=== PATIENT | female | born 1980 | race Caucasian/White ===

== ENCOUNTER 2018-05-02 14:06 | Emergency (ER) | payer BC ==
[~2018-05-02] VITALS: Ht 170.2 cm; Wt 152.0 kg
[~2018-05-02 14:06] MED LIST: CITA40TA22 PO
[2018-05-02] MEDS ORDERED: normal saline 1000ML IV soln IVB ONE (15:05)
[2018-05-02 15:42] LABS: BASOPHILS % (AUTO) 0.6 % (0-1); EOSINOPHILS # (AUTO) 0.1 X10'3 (0-0.9); HEMATOCRIT 42.8 % (35.0-45.0); HEMOGLOBIN 14.4 g/dl (12.0-16.0); LYMPHOCYTES # (AUTO) 1.4 X10'3 (1.1-4.8); LYMPHOCYTES % (AUTO) 15.8 % (21-51); MEAN CORPUSCULAR HEMOGLOBIN 29.6 PG (27.0-31.0); MEAN CORPUSCULAR HGB CONC 33.6 % (33.0-36.5); MEAN CORPUSCULAR VOLUME 88.1 FL (78-98); MEAN PLATELET VOLUME 7.7 FL (7.4-10.4); MONOCYTES % (AUTO) 11.2 % (2-12); NEUTROPHILS # (AUTO) 6.4 X10'3 (1.8-7.7); NEUTROPHILS % (AUTO) 71.4 % (42-75); PLATELET COUNT 364 X10'3 (140-440); RED BLOOD COUNT 4.85 X10'6 (4.20-5.60); RED CELL DISTRIBUTION WIDTH 12.9 % (11.5-14.5); WHITE BLOOD COUNT 8.9 X10'3 (4.5-11.0)
[2018-05-02 17:58] VITALS: BP 156/92
[2018-05-02 17:58] LABS: ALANINE AMINOTRANSFERASE 32 U/L (12-78); ALBUMIN 3.3 G/DL (3.4-5.0); ALKALINE PHOSPHATASE 67 IU/L (46-116); ANION GAP 9 (8-16); ASPARTATE AMINO TRANSFERASE 18 U/L (10-37); BILIRUBIN,TOTAL 0.2 MG/DL (0.1-1.0); BLOOD UREA NITROGEN 9 MG/DL (7-18); BUN/CREATININE RATIO 11.3 (6.6-38.0); CALCIUM 8.7 MG/DL (8.5-10.1); CHLORIDE 105 MMOL/L (99-107); GLUCOSE 121 MG/DL (70-104); POTASSIUM 3.9 MMOL/L (3.5-5.1); SODIUM 141 MMOL/L (135-145); TOTAL CARBON DIOXIDE 26.6 MMOL/L (24-32); TOTAL PROTEIN 6.7 G/DL (6.4-8.2); eGFR 81 ML/MIN
== END 2018-05-02 18:00 | disposition home or self-care (01) ==
LOC: ER 14:07
DX: R55 Syncope and collapse (principal); F41.9 Anxiety disorder, unspecified; F32.9 Major depressive disorder, single episode, unspecified; F12.90 Cannabis use, unspecified, uncomplicated; Z79.899 Other long term (current) drug therapy
CPT/HCPCS: 36415; 80053; 82553; 85025; 93005; 96360; 99284; J7030

== ENCOUNTER 2019-12-29 13:33 | Emergency (ER) | payer BC ==
[~2019-12-29] VITALS: Ht 170.2 cm; Wt 159.1 kg
[2019-12-29 13:41] VITALS: BP 168/50
[2019-12-29 14:30] LABS: BASOPHILS # (AUTO) 0.1 X10'3 (0-0.2); BASOPHILS % (AUTO) 0.8 % (0-1); EOSINOPHILS # (AUTO) 0.2 X10'3 (0-0.9); EOSINOPHILS % (AUTO) 1.7 % (0-6); HEMATOCRIT 43.4 % (35.0-45.0); HEMOGLOBIN 14.8 g/dl (12.0-16.0); LYMPHOCYTES # (AUTO) 2.3 X10'3 (1.1-4.8); LYMPHOCYTES % (AUTO) 22.9 % (21-51); MEAN CORPUSCULAR HEMOGLOBIN 30.3 PG (27.0-31.0); MEAN CORPUSCULAR HGB CONC 34.2 g/dL (33.0-36.5); MEAN CORPUSCULAR VOLUME 88.7 FL (78-98); MEAN PLATELET VOLUME 7.5 FL (7.4-10.4); NEUTROPHILS # (AUTO) 6.4 X10'3 (1.8-7.7); NEUTROPHILS % (AUTO) 64.6 % (42-75); PLATELET COUNT 360 X10'3 (140-440); RED BLOOD COUNT 4.89 X10'6 (4.20-5.60); RED CELL DISTRIBUTION WIDTH 13.1 % (11.5-14.5); WHITE BLOOD COUNT 9.9 X10'3 (4.5-11.0)
[2019-12-29 14:42] LABS: ALANINE AMINOTRANSFERASE 45 U/L (12-78); ALBUMIN 3.8 G/DL (3.4-5.0); ALKALINE PHOSPHATASE 69 IU/L (46-116); ANION GAP 8 (8-16); ASPARTATE AMINO TRANSFERASE 32 U/L (10-37); BILIRUBIN,TOTAL 0.3 MG/DL (0.1-1.0); BLOOD UREA NITROGEN 7 MG/DL (7-18); BUN/CREATININE RATIO 8.9 (6.6-38.0); CALCIUM 9.3 MG/DL (8.5-10.1); CHLORIDE 104 MMOL/L (99-107); CREATININE 0.79 MG/DL (0.40-0.90); GLUCOSE 92 MG/DL (70-104); POTASSIUM 3.9 MMOL/L (3.5-5.1); SODIUM 138 MMOL/L (135-145); TOTAL CARBON DIOXIDE 25.6 MMOL/L (24-32); TOTAL PROTEIN 7.7 G/DL (6.4-8.2); eGFR 81 ML/MIN
[2019-12-29] MEDS ORDERED: PROCHC RC (15:23)
--- NOTE | 2019-12-29 15:39 | NUR ---
ASSISSTED PROVIDER WITH RECTAL EXAM
--- NOTE | 2019-12-29 15:40 | NUR ---
Spoke with provider CRISS Palma and UA not needed.
== END 2019-12-29 15:39 | disposition home or self-care (01) ==
LOC: ER 13:33
DX: K64.9 Unspecified hemorrhoids (principal); R19.7 Diarrhea, unspecified; F41.9 Anxiety disorder, unspecified; F32.9 Major depressive disorder, single episode, unspecified; E66.01 Morbid (severe) obesity due to excess calories; F12.90 Cannabis use, unspecified, uncomplicated; Z79.899 Other long term (current) drug therapy; Z68.43 Body mass index [BMI] 50.0-59.9, adult
CPT/HCPCS: 36415; 80053; 85025; 99283

== ENCOUNTER 2022-11-23 21:10 | Emergency (ER) | payer BC ==
[~2022-11-23] VITALS: Ht 170.2 cm; Wt 150.0 kg
[~2022-11-23 21:10] MED LIST changes: +PROCHC RC
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
[2022-11-23] MEDS ORDERED: iohexol 300mg/ml 100ml inj. ONE (23:24)
--- NOTE | 2022-11-24 01:43 | NUR ---
Spoke to Dr Campo and report of CT read to him. Tenisha dc the patient, giving her a copy of the report, and for her to f/u with her MD.
[2022-11-24 01:49] VITALS: BP 135/89
--- NOTE | 2022-11-24 01:49 | NUR ---
per dr moffett, ok to d/c pt after recieving ct results. results read to dr moffett.
== END 2022-11-24 01:50 | disposition home or self-care (01) ==
LOC: ER 21:11
DX: S16.1XXA Strain of muscle, fascia and tendon at neck level, initial encounter (principal); S80.812A Abrasion, left lower leg, initial encounter; S60.511A Abrasion of right hand, initial encounter; Y08.89XA Assault by other specified means, initial encounter; Y93.89 Activity, other specified; Y92.89 Other specified places as the place of occurrence of the external cause; Y99.8 Other external cause status
CPT/HCPCS: 70491; 99285; Q9967

== ENCOUNTER 2023-01-05 19:40 | Emergency (ER) | payer BC ==
[~2023-01-05] VITALS: Ht 170.2 cm; Wt 149.2 kg
[2023-01-05 20:36] VITALS: BP 147/84; PULSE 83; RESP 16; TEMP 98.3; O2SAT 98
[2023-01-05 21:11] LABS: URINE HCG NEGATIVE (NEG)
[2023-01-05 21:17] LABS: BILIRUBIN,URINE NEGATIVE (Neg); CLARITY,URINE CLEAR (Clear); COLOR,URINE YELLOW (Yellow); GLUCOSE, URINE NEGATIVE (Neg); KETONES,URINE 15 mg/dl (Neg); LEUKOCYTE ESTERASE ,URINE TRACE (Neg); NITRITES, URINE NEGATIVE (Neg); OCCULT BLOOD,URINE TRACE-INTACT (Neg); PH,URINE 5.5 (4.8-8.0); PROTEIN,URINE NEGATIVE (Neg); UROBILINOGEN,URINE 0.2 E.U/dL (0.2-1.0)
[2023-01-05 21:29] LABS: MEAN CORPUSCULAR HEMOGLOBIN 29.2 PG (27.0-31.0); MEAN PLATELET VOLUME 7.6 FL (7.4-10.4)
[2023-01-05 21:30] LABS: BASOPHILS # (AUTO) 0.1 X10'3 (0-0.2); EOSINOPHILS # (AUTO) 0.1 X10'3 (0-0.9); EOSINOPHILS % (AUTO) 1.4 % (0-6); HEMATOCRIT 40.4 % (35.0-45.0); HEMOGLOBIN 13.7 g/dl (12.0-16.0); LYMPHOCYTES # (AUTO) 2.4 X10'3 (1.1-4.8); LYMPHOCYTES % (AUTO) 23.7 % (21-51); MEAN CORPUSCULAR HGB CONC 33.9 g/dL (33.0-36.5); MEAN CORPUSCULAR VOLUME 86.1 FL (78-98); MONOCYTES # (AUTO) 1.2 X10'3 (0-0.9); MONOCYTES % (AUTO) 12.2 % (2-12); NEUTROPHILS # (AUTO) 6.2 X10'3 (1.8-7.7); NEUTROPHILS % (AUTO) 61.7 % (42-75); PLATELET COUNT 359 X10'3 (140-440); RED BLOOD COUNT 4.69 X10'6 (4.20-5.60); RED CELL DISTRIBUTION WIDTH 13.3 % (11.5-14.5)
[2023-01-05 21:33] LABS: UA COLLECTION TYPE CLN CATCH MIDSTREAM
[2023-01-05 21:36] LABS: BACTERIA,URINE FEW /HPF (Neg); RBC,URINE 0-2 /HPF (0-2); SQUAMOUS EPITHELIAL CELL,UR FEW /LPF (FEW); WBC,URINE 0-4 /HPF (0-4)
[2023-01-05 21:37] LABS: ALANINE AMINOTRANSFERASE 39 U/L (12-78); ALBUMIN 3.8 G/DL (3.4-5.0); ALKALINE PHOSPHATASE 61 IU/L (46-116); ANION GAP 12 (8-16); ASPARTATE AMINO TRANSFERASE 24 U/L (10-37); BILIRUBIN,TOTAL 0.3 MG/DL (0.1-1.0); BLOOD UREA NITROGEN 12 MG/DL (7-18); CALCIUM 9.5 MG/DL (8.5-10.1); CHLORIDE 104 MMOL/L (99-107); CREATININE 0.75 MG/DL (0.40-0.90); GLUCOSE 105 MG/DL (70-104); LIPASE 111 U/L (73-393); POTASSIUM 3.8 MMOL/L (3.5-5.1); SODIUM 138 MMOL/L (135-145); TOTAL CARBON DIOXIDE 22.1 MMOL/L (24-32); TOTAL PROTEIN 7.8 G/DL (6.4-8.2); eCRCL 96 ML/MIN; eGFR 85 ML/MIN
== END 2023-01-06 00:10 | disposition left against medical advice (07) ==
LOC: ER 19:40
DX: R10.31 Right lower quadrant pain (principal); Z53.21 Procedure and treatment not carried out due to patient leaving prior to being seen by health care provider
CPT/HCPCS: 36415; 80053; 81001; 81025; 83690; 85025; 87088; 99281

== ENCOUNTER 2025-03-05 16:46 | Emergency (ER) | payer BC ==
[~2025-03-05] VITALS: Ht 170.2 cm; Wt 138.9 kg
--- NOTE | 2025-03-05 16:53 | ELECTROCARDIOGRAPH REPORT ---
[facility] Test Date: 2025-03-05 Test Time: 16:51:11 Pat Name: JANEY BARFIELD Department: EMERGENCY ROOM Room: Gender: F Service Associate: : 1980 Requested By: CARLTON KAUR Order Number: [id number] Reading MD: Measurements Intervals [place] Rate: 79 P: 5 TN: 182 QRS: 43 QRSD: 89 T: 22 QT: 361 QTc: 414 Interpretive Statements Sinus rhythm Low voltage, precordial leads Please click the below link to view image of tracing.
[2025-03-05 16:59] VITALS: BP 150/72; PULSE 80; TEMP 97.3; O2SAT 98
[2025-03-05 17:08] LABS: MEAN PLATELET VOLUME 7.3 FL (7.4-10.4); RED CELL DISTRIBUTION WIDTH 14.4 % (11.5-14.5)
--- NOTE | 2025-03-05 17:15 | RADIOLOGY REPORT ---
EXAM: DI CHEST,SINGLE VIEW HISTORY: CP TECHNIQUE: 1 view of the chest COMPARISON: None FINDINGS/IMPRESSION: LUNGS: No pleural effusion, consolidation, or pneumothorax. MEDIASTINUM: Unremarkable. BONES: No acute osseous abnormality. OTHER: None.
[2025-03-05 17:38] LABS: CREATININE 0.74 MG/DL (0.40-0.90); PRO BRAIN NATRIURETIC PEPTIDE 64 PG/ML (0-125); TOTAL CARBON DIOXIDE 26.5 MMOL/L (24-32); eCRCL 95 ML/MIN; eGFR 86 ML/MIN
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
[2025-03-05] MEDS ORDERED: METO-539 PO (18:29)
[2025-03-05] MEDS ORDERED: LORA-269 PO (18:29)
[2025-03-05] MEDS ORDERED: HYDR-3717 PO (18:29)
[2025-03-05 18:50] VITALS: RESP 18
== END 2025-03-05 19:02 | disposition home or self-care (01) ==
LOC: ER 16:48
DX: R07.89 Other chest pain (principal); F41.9 Anxiety disorder, unspecified; F32.A Depression, unspecified; I10 Essential (primary) hypertension; F12.90 Cannabis use, unspecified, uncomplicated; Z79.899 Other long term (current) drug therapy
CPT/HCPCS: 36415; 71045; 80048; 83880; 84484; 85025; 93005; 99285